=== PATIENT | female | born 2005 | race Caucasian/White ===

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

== ENCOUNTER 2025-02-02 22:21 | Emergency (ER) | payer SELFPAY ==
--- OUTSIDE RECORDS SUMMARY | 2021-07-06 07:51 | XMS_ITS | Continuity of Care Document ---
Author Organization [facility] Address [address] [address] Phone Care Team Providers Care Production Consultant Name Role Phone Asim Kennedy Joseph Unavailable [...] Diagnoses Date Provider Providers Copied on Encounter [facility], [address] [place] [address], [id number], tel:[phone] [facility] No Information Asim Kennedy. [address] [place] [address], [address], [address] [place] [address], . tel:[phone] [facility], [address] [place] [address], [id number], tel:[phone] [facility] Abnormal auditory perception, bilateral 2 Tammy Villanueva. [address] [facility], [address], [place], [place], [id number], [place]. tel:[phone] Referring Provider: Gaby SANTOS, [address] [place] [address] [facility] , [place], [address] . tel:[phone] Family History Family Member Type Diagnosis Age At Onset No Information Payers Payer name Insurance type Covered green party ID Authoriza tion(s) [facility] [id number] Social History Type Description Quantity Date Captured [...]
[2025-02-02 22:26] VITALS: BP 132/80; PULSE 73; RESP 18; TEMP 36.8; O2SAT 100; BMI 36.8
[2025-02-02 23:52] VITALS: BP 143/87; PULSE 78; O2SAT 100
[2025-02-03] VITALS (7 sets, daily range): BP systolic 120–131; BP diastolic 62–82; PULSE 54–86; RESP 14; O2SAT 96–99
[2025-02-03 01:05] LABS: HCG Qualitative Urine. Negative (Negative)
[2025-02-03 01:17] LABS: Hematocrit 38.2 % (36-47); Hemoglobin 12.90 g/dL (12.4-14.8); Mean Corpuscular HGB Conc 33.8 g/dL (30-55); Mean Corpuscular Hemoglobin 29.4 pg (27-33); Mean Corpuscular Volume 87.0 fl (85-98); Nucleated Red Blood Cells % 0 %; Platelet Count 342 10^3/cmm (157-399); Red Blood Count 4.39 10^6/uL (3.85-5.65); White Blood Count 8.91 10^3/uL (4.5-13.0)
[2025-02-03 01:45] LABS: Glucose Urine UA Negative (Normal); Nitrate Urine Negative (Negative); Specific Gravity, Urine 1.012 (1.005-1.030)
[2025-02-03 02:09] LABS: Alanine Aminotransferase 9 U/L (0-33); Albumin Level 4.5 g/dL (3.5-5.2); Alkaline Phosphatase 62 U/L (35-105); Anion Gap 17.2 (5-19); Aspartate Amino Transferase 12 U/L (0-32); Blood Urea Nitrogen 12 mg/dL (6-20); Calcium 9.8 mg/dL (8.5-10.5); Carbon Dioxide 25 mmol/L (22-29); Chloride 101 mmol/L (98-107); Creatinine Clr Calc Pharmacy 167.8406; Globulin 3.2 g/dL (1.3-4.6); Glucose 90 mg/dL (65-115); Osmolality Calculated 287 mOsm/kg (285-295); Potassium 4.2 mmol/L (3.5-5.1); Sodium 139 mmol/L (136-145); Total Protein 7.7 g/dL (6.6-8.7)
[2025-02-03 03:17] LABS: Neisseria Gonorrhea NOT DETECTED (Negative)
--- NOTE | 2025-02-03 04:53 | ED_ITS ---
HPI - Abdominal Pain 2 General: Chief Complaint: Abdominal Pain Stated Complaint: stomach pain. weird discharge Time Seen by Provider: 02/03/25 00:37 History of Present Illness: 19 yo F presents for evaluation of vagin al discharge and abdominal pain. Pain for approximately 4-6 days, mostly lower abdomen, intermittent but persistent, stabbing, 2/10, tender to touch; occasionally radiates up the sides or feels like ?kidney? area. Had sex this morning followed by dark brown bleeding. Reports nausea without vomiting, dizziness, and heightened smell sensitivity with food aversions. Menstrual Hx notable for historically irregular cycles; last 6 months reportedly regular. Last menses started 12/28 and ended 01/02 per pt; currently 6 days late (date referenced as ). Took two [facility] home tests, both clearly negative. Denies prior GI or issues. Pt is accompanied by aunt/adoptive mother and consents to discuss freely. exam deferred. Related Data Previous Rx's ?Medication ?Instructions ?Recorded ibuprofen 800 mg tablet 800 mg PO Q8H PRN pain #30 t abs 06/16/24 oseltamivir 75 mg capsule (Tamiflu) 75 mg PO BID 5 day s #10 caps 06/16/24 promethazine-DM 6.25 mg-15 mg/5 mL 10 ml PO Q6H PRN co ugh #473 mL 06/16/24 oral syrup azithromycin 250 mg tablet See Rx Instructions PO .COM PLEX #6 11/21/24 tabs Allergies Allergy/AdvReac Type Severity Reaction Status Date / Time No Known Allergies Allergy Verified 02/02/25 22:31 [facility] ED 2 PFSH: Social History Smoking and tobacco/nicotine status: former use of tobacco/nicotine Physical Exam 2 Const: COMMON NORMALS: no acute distress, patient oriented x3 and alert HENMT: COMMON NORMALS: normocephalic and atraumatic HEAD & SCALP: n ormocephalic and atraumatic Eye: COMMON NORMALS: Equal, round and reactive pupils present, EOMs intact bilaterally and no scleral icterus PUPIL: Yes Equal, round and reactive pupils present Resp: COMMON NORMALS: normal respiratory effort and No retractions Cardio: COMMON NORMALS: regular rate, regular rhythm and No murmurs present (Cardio) RATE: regular rate RHYTHM: regular rhythm GI: OTHER: Mild suprapubic and left adnexal tenderness to palpation; other abdominal areas with only slight pressure sensitivity as elicited. exam deferred. Neuro: COMMON NORMALS: patient oriented x3 SENSORIUM/ORIENTATION: Yes alert Skin: COMMON NORMALS: no rashes or lesions noted GENERAL SKIN EXAM: no rashes or lesions noted Course 2 Vital Signs: Vital signs: Vital Signs Temperature 98.3 F 02/02/25 22:26 Pulse Rate 86 02/03/25 04:50 Respiratory Rate 14 02/03/25 04:50 Blood Pressure 120/62 02/03/25 04:50 Pulse Oximetry 99 02/03/25 04:50 Oxygen Delivery Me thod Room Air 02/03/25 03:00 MDM - Abdominal Pain Medical Decision Making 19F with 4-6 days intermittent lower abdominal pain, nausea, dizziness, 6 days late menses, dark brown bleeding after intercourse this morning, and concern for despite two negative home tests. Seen today for vaginal discharge. considered given missed menses. STI etiologies (chlamydia, gonorrhea) discussed as possible causes of indolent pelvic pain and discharge. Provider does not think ultrasound is needed at this time based on current exam. Blood work planned including serum test; urine testing planned for and, if possible, NAAT for chlamydia/gonorrhea from existing urine. If urine NAAT not available, patient agreeable to self-swab. Imaging (CT/US) to be considered pending lab results. Lab work unremarkable. No evidence of STI, UTI, , or other abnormality. Exam reassuring. Will be discharged home in stable condition with follow-up to primary care Lab Data 02/03/25 01:09 02/03/25 01:09 Labs/Radiology: Laboratory Results WBC 8.91 10^3/uL (4.5-13.0) 02/03/25 01:09 RBC 4.39 10^6/uL (3.85-5.65) 02/03/25 01:09 Hgb 12.90 g/dL (12.4-14.8) 02/03/25 01:09 Hct 38.2 % (36-47) 02/03/25 01:09 MCV 87.0 fl (85-98) 02/03/25 01:09 MCH 29.4 pg (27-33) 02/03/25 01:09 MCHC 33.8 g/dL (30-55) 02/03/25 01:09 RDW 11.8 % (12.1-15.1) L 02/03/25 01:09 Plt Count 342 10^3/cmm (157-399) 02/03/25 01:09 MPV 8.9 fL (7.4-10.4) 02/03/25 01:09 Neut % (Auto) 62.5 % 02/03/25 01:09 Lymph % (Auto) 29.5 % 02/03/25 01:09 [place] % (Auto) 5.1 % 02/03/25 01:09 Eos % (Auto) 2.0 % 02/03/25 01:09 Baso % (Auto) 0.8 % 02/03/25 01:09 Neut # (Auto) 5.57 10^3/uL (1.8-8.0) 02/03/25 01:09 Lymph # (Auto) 2.6 10^3/uL (1.5-6.5) 02/03/25 01:09 [place] # (Auto) 0.5 10^3/uL (0.2-0.9) 02/03/25 01:09 Eos # (Auto) 0.2 10^3/uL (0.0-0.8) 02/03/25 01:09 Baso # (Auto) 0.1 10^3/uL (0.0-0.1) 02/03/25 01:09 Nucleated RBC % (auto) 0 % 02/03/25 01:09 Nucleated RBCs # 0.0 /100WBC 02/03/25 01:09 Sodium 139 mmol/L (136-145) 02/03/25 01:09 Potassium 4.2 mmol/L (3.5-5.1) 02/03/25 01:09 Chloride 101 mmol/L (98-107) 02/03/25 01:09 Carbon Dioxide 25 mmol/L (22-29) 02/03/25 01:09 Anion Gap 17.2 (5-19) 02/03/25 01:09 BUN 12 mg/dL (6-20) 02/03/25 01:09 Creatinine 0.7 mg/dL (0.5-0.9) 02/03/25 01:09 GFR Calculation 107.8 mL/min (90-130) 02/03/25 01:09 Glucose 90 mg/dL (65-115) 02/03/25 01:09 Calculated Osmolality 287 mOsm/kg (285-295) 02/03/25 01:09 Calcium 9.8 mg/dL (8.5-10.5) 02/03/25 01:09 Total Bilirubin 0.2 mg/dL (0.15-1.2) 02/03/25 01:09 AST 12 U/L (0-32) 02/03/25 01:09 ALT 9 U/L (0-33) 02/03/25 01:09 Alkaline Phosphatase 62 U/L (35-105) 02/03/25 01:09 Total Protein 7.7 g/dL (6.6-8.7) 02/03/25 01:09 Albumin 4.5 g/dL (3.5-5.2) 02/03/25 01:09 Globulin 3.2 g/dL (1.3-4.6) 02/03/25 01:09 HCG, Qual Negative (Negative) 02/02/25 22:42 Ser , Semi-Qnt < 1.00 mIU/mL 02/03/25 01:09 Urine Color Yellow (Yellow) 02/03/25 01:26 Urine Appearance Clear (CLEAR) 02/03/25 01:26 Urine pH 6.0 (5-7) 02/03/25 01:26 Ur Specific [place] 1.012 (1.005-1.030) 02/03/25 01:26 Urine Protein Negative (Negative) 02/03/25 01:26 Urine Glucose (UA) Negative (Normal) 02/03/25 01:26 Urine Ketones Negative (Negative) 02/03/25 01:26 Urine Blood 2+ (Negative) A 02/03/25 01:26 Urine Nitrate Negative (Negative) 02/03/25 01:26 Urine Bilirubin Negative (Negative) 02/03/25 01:26 Urine Urobilinogen 0.2 mg/dL (Negative) 02/03/25 01:26 Ur Leukocyte Esterase Negative (Negative) 02/03/25 01:26 Urine RBC 3-5 /hpf (0-2) 02/03/25 01:26 Urine WBC 0-5 /hpf (0-5) 02/03/25 01:26 Ur Squamous Epith Cells 0-5 /hpf (0-5) 02/03/25 01:26 Amorphous Sediment Not Reportable 02/03/25 01:26 Urine Bacteria None seen /hpf (NONE) 02/03/25 01:26 Hyaline Casts 0-4 /lpf H 02/03/25 01:26 C. trachomatis (PCR) Not detected (Negative) 02/03/25 01:26 N. gonorrhoeae (PCR) Not detected (Negative) 02/03/25 01:26 No radiology studies performed this visit Discharge Plan Discharge Patient Disposition: Home Condition: Stable Prescriptions: No Action oseltamivir [Tamiflu] 75 mg capsule 75 mg PO BID 5 Days Qty: 10 0RF promethazine-DM 6.25-15 mg/5 mL syrup 10 ml PO Q6H PRN (Reason: cough) Qty: 473 0RF ibuprofen 800 mg tablet 800 mg PO Q8H PRN (Reason: pain) Qty: 30 0RF azithromycin 250 mg tablet See Rx Instructions PO .COMPLEX Qty: 6 0RF Rx Instructions: take 500 mg today (day 1), then 250 mg for 4 days (days 2-5) PO Discharge Orders: Discharge ED (Routine); Ordered 02/03/25 Ordered By: Manjeet Yan Discharge Diet: Advance as tolerated Discharge Activity: Resume usual activity Patient Instructions: Abdominal Pain (ED), Patient Portal & Dot Instructions Activity Restrictions/Additional Instructions: all of your tests were reassuring. There is no evidence of UTI, chlamydia, gonorrhea, or other abnormality. You are not . Symptoms should get better with time without need for any specific intervention. Please take Tylenol or ibuprofen for pain as needed Print Language: Surinamese Coding Level of Care Code ED Project Product Manager for En Howe
== END 2025-02-03 04:53 | disposition home or self-care (01) ==
PROVIDERS: Emergency Provider Student in an Organized Health Care Education/Training Program
DX: R10.30 Lower abdominal pain, unspecified (principal); R11.0 Nausea; R42 Dizziness and giddiness; N93.9 Abnormal uterine and vaginal bleeding, unspecified; Z87.891 Personal history of nicotine dependence
CPT/HCPCS: 36415; 80053; 81001; 81025; 84702; 85025; 87491; 87591; 99283

== ENCOUNTER 2025-04-30 03:29 | Emergency (ER) | payer SELFPAY ==
--- OUTSIDE RECORDS SUMMARY | 2021-07-06 06:51 | XMS_ITS | Continuity of Care Document ---
Author Organization [facility] Address [address] [address] Phone Care Team Providers Care Deli Cutter Slicer Name Role Phone Asim Kennedy Joseph Unavailable Unavailable Medications Medication Instructions Dosage Effective Dates (start - stop) Status Comments fluoxetine 20 mg capsule take 1 capsule by oral route every day in the morning 20 MG - Active levothyroxine 100 mcg tablet take 1 tablet by oral route every day 100 MCG - Active METFORMIN HCL (unknown strength) take 10 milliliter by oral route 2 times every day with meals Not Available - Active Procedures Procedure Date Comp Audiometry Threshold Eval Advance Directives Directive Yes / No Effective Date File Name No Information Encounters Encounter Description Practice Location Reason(s) For Visit Diagnoses Date Provider Providers Copied on Encounter [facility], [address] [place] [address], [id number], tel:[phone] [facility] No Information Asim Kennedy. [address] [place] [address], [address], [address] [place] [address], . tel:[phone] [facility], [address] [place] [address], [id number], tel:[phone] [facility] Abnormal auditory perception, bilateral 2 Tammy Villanueva. [address] [facility], [address], [place], [place], [id number], [place]. tel:[phone] Referring Provider: Gaby SANTOS, [address] [place] [address] [facility] , [place], [address] . tel:[phone] Family History Family Member Type Diagnosis Age At Onset No Information Payers Payer name Insurance type Covered green party ID Authoriza tion(s) [facility] [id number] Social History Type Description Quantity Date Captured Comments Sex Female Smoking Status No Information Chief Complaint And Reason For Visit No Information Reason For Referral Reason For Referral No Information History Of Present Illness Encounter Date Complaint History Of Prese nt Illness No Information Functional Status Date Functional Assessmen t No Information Instructions Date Instruction Additional Infor mation No Information Assessments Type Assessment Date No Information Patient Care Teams Name Effective Dates (start - stop) Status Members No Information
[2025-04-30 03:36] VITALS: BP 123/84; PULSE 92; RESP 18; TEMP 36.4; O2SAT 97; BMI 38.1
[2025-04-30 03:59] LABS: Hematocrit 40.4 % (36-47); Hemoglobin 13.40 g/dL (12.4-14.8); Mean Corpuscular HGB Conc 33.2 g/dL (30-55); Mean Corpuscular Hemoglobin 28.6 pg (27-33); Mean Corpuscular Volume 86.1 fl (85-98); Nucleated Red Blood Cells % 0 %; Platelet Count 348 10^3/cmm (157-399); Red Blood Count 4.69 10^6/uL (3.85-5.65); White Blood Count 12.64 10^3/uL (4.5-13.0)
[2025-04-30] MEDS: ondansetron 2 mg/ML SDV 2 mL 4 MG IVP (04:00)
[2025-04-30 04:07] LABS: HCG, Serum Qual Negative (Negative)
[2025-04-30 04:13] LABS: Alanine Aminotransferase 17 U/L (0-33); Albumin Level 4.3 g/dL (3.5-5.2); Alkaline Phosphatase 57 U/L (35-105); Anion Gap 14.3 (5-19); Aspartate Amino Transferase 19 U/L (0-32); Blood Urea Nitrogen 13 mg/dL (6-20); Calcium 8.9 mg/dL (8.5-10.5); Carbon Dioxide 25 mmol/L (22-29); Chloride 100 mmol/L (98-107); Creatinine Clr Calc Pharmacy 149.7767; Globulin 3.3 g/dL (1.3-4.6); Glucose 95 mg/dL (65-115); Lipase 25 U/L (13-60); Osmolality Calculated 282 mOsm/kg (285-295); Potassium 3.3 mmol/L (3.5-5.1); Sodium 136 mmol/L (136-145); Total Protein 7.6 g/dL (6.6-8.7)
--- NOTE | 2025-04-30 04:16 | CTR_ITS ---
PROCEDURE INFORMATION: Exam: CT Abdomen And Pelvis With Contrast Exam date and time: 04/30/2025 4:38 AM Age: 19 years old Clinical indication: Abdominal pain; Additional info: Diffuse upper abd pain TECHNIQUE: Imaging protocol: Computed tomography of the abdomen and pelvis with contrast. Radiation optimization: All CT scans at this facility use at least one of these dose optimization techniques: automated exposure control; mA and/or kV adjustment per patient size (includes targeted exams where dose is matched to clinical indication); or iterative reconstruction. Contrast material: OMNI 350; Contrast volume: 100 ml; Contrast route: INTRAVENOUS (IV); COMPARISON: No relevant prior studies available. RADIATION DOSE METRICS: Total DLP (mGy-cm): 1225.1 FINDINGS: Liver: Normal. No mass. Gallbladder and biliary ducts: Normal. No calcified stones. No ductal dilation. Pancreas: Normal. No ductal dilation. Spleen: Normal. No splenomegaly. Adrenal glands: Normal. No mass. Kidneys and ureters: Normal. No hydronephrosis. Stomach and bowel: Unremarkable. No obstruction. No mucosal thickening. Appendix: No evidence of appendicitis. Normal. Intraperitoneal space: Unremarkable. No free air. No significant fluid collection. Small volume pelvic cul-de-sac intraperitoneal free fluid with simple appearance. Vasculature: Unremarkable. No abdominal aortic aneurysm. Lymph nodes: Unremarkable. No enlarged lymph nodes. Urinary bladder: Unremarkable as visualized. Reproductive: Unremarkable uterus. Unremarkable left ovary. Early involutional changes of a small right ovary cyst measures 3.5 cm. Bones/joints: Unremarkable. No acute fracture. Soft tissues: Unremarkable. CT/CT abdomen pelvis w con* [id number] IMPRESSION: No acute findings.
[2025-04-30 04:30] VITALS: BP 132/78; PULSE 81; O2SAT 100
--- NOTE | 2025-04-30 04:32 | W.ED.NAVMDI ---
HPI - Nausea/Vomiting/Diarrhea General: Chief complaint: Nausea/Vomiting/Diarrhea Stated complaint: Passed Out\D\V Time Seen by Provider: 04/30/25 03:38 History of Present Illness: Patient is a 19-year-old female with past medical history of hypothyroidism who presents to the ED with abdominal pain. Describes that as diffusely upper abdominal in nature, stabbing, has been there intermittently for the past month but worsened acutely over the past day, no obvious provoking factors, not seemingly just related to food. She has felt nauseous and had 1 episode of vomiting, no diarrhea, no previous GI history, no previous abdominal surgeries. Has not realized any fevers, chills, diaphoresis. Last period was about a month and a half ago, not on contraception. Does not have a heavy history of ibuprofen usage, rarely drinks alcohol, vapes nicotine most days. Related Data Previous Rx's ?Medication ?Instructions ?Recorded ibuprofen 800 mg tablet 800 mg PO Q8H PRN pain #30 tabs 06/16/24 oseltamivir 75 mg capsule (Tamiflu) 75 mg PO BID 5 days #10 caps 06/16/24 promethazine-DM 6.25 mg-15 mg/5 mL 10 ml PO Q6H PRN cough #473 mL 06/16/24 oral syrup azithromycin 250 mg tablet See Rx Instructions PO .COMPLEX #6 11/21/24 tabs ondansetron 4 mg disintegrating 4 mg PO Q8H 5 days #15 tabs 04/30/25 tablet sucralfate 1 gram tablet (Carafate) 1 g PO BID 4 weeks #56 tabs 04/30/25 Allergies Allergy/AdvReac Type Severity Reaction Status Date / Time No Known Allergies Allergy Verified 02/02/25 22:31 Review of Systems General: Reports: 10 or more systems reviewed and unremarkable except in HPI and below PFSH ED PFSH: Social History Smoking and tobacco/nicotine status: former use of tobacco/nicotine Female Reproductive History: Date of last menstrual period: 03/03/25 Physical Exam Narrative: EXAM NARRATIVE: Patient overall well-appearing, afebrile and vital signs stable on arrival, no acute distress. head normocephalic, PERRL, moist mucous membranes, no cervical LAD. breathing comfortably on RA, saturating well, clear BL and no adventitious breath sounds, able to speak in full sentences without getting SOB, no signs of respiratory distress. NSR with no murmurs, no leg swelling, 2+ pulses throughout, good cap refill. Abdomen soft, mild diffusely tender in upper abdominal region, negative Dorsey sign 4 extremities without apparent deformity or injury. GCS 15, AAOx4, able to answer questions and follow commands appropriately, moving all 4 extremities symmetrically and spontaneoulsy. Normal mood and affect. Course Vital Signs: Vital signs: Vital Signs Temperature 97.6 F 04/30/25 03:36 Pulse Rate 88 04/30/25 05:57 Respiratory Rate 18 04/30/25 03:36 Blood Pressure 128/86 04/30/25 05:57 Pulse Oximetry 95 04/30/25 05:57 Oxygen Delivery Me thod Room Air 04/30/25 03:36 MDM - Nausea/Vomiting/Diarrhea Medical Decision Making -ddx: Gastritis, GERD, cholelithiasis, pancreatitis, constipation, dehydration, electrolyte abnormality, cystitis, pyelonephritis, PUD - Patient with acute on chronic upper abdominal pain, never been evaluated prior, no obvious provoking factors, will evaluate with abdominal labs, CT scan after test, give symptomatic support with fluids, Zofran, Pepcid Toradol and reassess. - Patient with reassuring ED evaluation, had mild hypokalemia CT scan with no obvious intra-abdominal pathology, did have a slightly involuted ovarian cyst on the right, not seemingly correlating with patient's symptoms today. She was able to p.o. challenge after above medications and had felt improved, believed patient to either have gastritis/early PUD with her clinical signs and symptoms, advised supportive care, dietary recommendations for potential ulcer and prescribe Zofran, Carafate and GI follow-up if patients symptoms persist, discharged in stable condition with boyfriend at bedside. Lab Data 04/30/25 03:47 04/30/25 03:47 Radiology Impressions Abdomen/Pelvis CT 04/30/25 04:16 IMPRESSION: No acute findings. Laboratory Results WBC 12.64 10^3/uL (4.5-13.0) 04/30/25 03:47 RBC 4.69 10^6/uL (3.85-5.65) 04/30/25 03:47 Hgb 13.40 g/dL (12.4-14.8) 04/30/25 03:47 Hct 40.4 % (36-47) 04/30/25 03:47 MCV 86.1 fl (85-98) 04/30/25 03:47 MCH 28.6 pg (27-33) 04/30/25 03:47 MCHC 33.2 g/dL (30-55) 04/30/25 03:47 RDW 12.0 % (12.1-15.1) L 04/30/25 03:47 Plt Count 348 10^3/cmm (157-399) 04/30/25 03:47 MPV 9.0 fL (7.4-10.4) 04/30/25 03:47 Neut % (Auto) 77.1 % 04/30/25 03:47 Lymph % (Auto) 18.4 % 04/30/25 03:47 [place] % (Auto) 3.2 % 04/30/25 03:47 Eos % (Auto) 0.8 % 04/30/25 03:47 Baso % (Auto) 0.3 % 04/30/25 03:47 Neut # (Auto) 9.73 10^3/uL (1.8-8.0) H 04/30/25 03:47 Lymph # (Auto) 2.3 10^3/uL (1.5-6.5) 04/30/25 03:47 [place] # (Auto) 0.4 10^3/uL (0.2-0.9) 04/30/25 03:47 Eos # (Auto) 0.1 10^3/uL (0.0-0.8) 04/30/25 03:47 Baso # (Auto) 0.0 10^3/uL (0.0-0.1) 04/30/25 03:47 Nucleated RBC % (auto) 0 % 04/30/25 03:47 Nucleated RBCs # 0.0 /100WBC 04/30/25 03:47 Sodium 136 mmol/L (136-145) 04/30/25 03:47 Potassium 3.3 mmol/L (3.5-5.1) L 04/30/25 03:47 Chloride 100 mmol/L (98-107) 04/30/25 03:47 Carbon Dioxide 25 mmol/L (22-29) 04/30/25 03:47 Anion Gap 14.3 (5-19) 04/30/25 03:47 BUN 13 mg/dL (6-20) 04/30/25 03:47 Creatinine 0.8 mg/dL (0.5-0.9) 04/30/25 03:47 GFR Calculation 92.4 mL/min (90-130) 04/30/25 03:47 Glucose 95 mg/dL (65-115) 04/30/25 03:47 Calculated Osmolality 282 mOsm/kg (285-295) L 04/30/25 03:47 Calcium 8.9 mg/dL (8.5-10.5) 04/30/25 03:47 Total Bilirubin 0.5 mg/dL (0.15-1.2) 04/30/25 03:47 AST 19 U/L (0-32) 04/30/25 03:47 ALT 17 U/L (0-33) 04/30/25 03:47 Alkaline Phosphatase 57 U/L (35-105) 04/30/25 03:47 C-Reactive Protein 3.0 mg/L (0.0-4.9) 04/30/25 03:47 Total Protein 7.6 g/dL (6.6-8.7) 04/30/25 03:47 Albumin 4.3 g/dL (3.5-5.2) 04/30/25 03:47 Globulin 3.3 g/dL (1.3-4.6) 04/30/25 03:47 Lipase 25 U/L (13-60) 04/30/25 03:47 HCG, Qual Negative (Negative) 04/30/25 03:47 Urine Color Yellow (Yellow) 04/30/25 05:18 Urine Appearance Clear (CLEAR) 04/30/25 05:18 Urine pH 6.0 (5-7) 04/30/25 05:18 Ur Specific [place] 1.072 (1.005-1.030) H 04/30/25 05:18 Urine Protein Negative (Negative) 04/30/25 05:18 Urine Glucose (UA) Negative (Normal) 04/30/25 05:18 Urine Ketones Negative (Negative) 04/30/25 05:18 Urine Blood Negative (Negative) 04/30/25 05:18 Urine Nitrate Negative (Negative) 04/30/25 05:18 Urine Bilirubin Negative (Negative) 04/30/25 05:18 Urine Urobilinogen 0.2 mg/dL (Negative) 04/30/25 05:18 Ur Leukocyte Esterase Negative (Negative) 04/30/25 05:18 Urine RBC 3-5 /hpf (0-2) 04/30/25 05:18 Urine WBC 0-5 /hpf (0-5) 04/30/25 05:18 Ur Squamous Epith Cells 0-5 /hpf (0-5) 04/30/25 05:18 Amorphous Sediment Not Reportable 04/30/25 05:18 Urine Bacteria Trace /hpf (NONE) 04/30/25 05:18 Hyaline Casts 0.40 /lpf 04/30/25 05:18 All radiology interpretation(s) finalized by discharge Discharge Plan Discharge Patient Disposition: Home Clinical Impression: PUD (peptic ulcer disease) Condition: Stable Prescriptions: New ondansetron 4 mg tablet,disintegrating 4 mg PO Q8H 5 Days Qty: 15 0RF sucralfate [Carafate] 1 gram tablet 1 g PO BID 28 Days Qty: 56 0RF No Action oseltamivir [Tamiflu] 75 mg capsule 75 mg PO BID 5 Days Qty: 10 0RF promethazine-DM 6.25-15 mg/5 mL syrup 10 ml PO Q6H PRN (Reason: cough) Qty: 473 0RF ibuprofen 800 mg tablet 800 mg PO Q8H PRN (Reason: pain) Qty: 30 0RF azithromycin 250 mg tablet See Rx Instructions PO .COMPLEX Qty: 6 0RF Rx Instructions: take 500 mg today (day 1), then 250 mg for 4 days (days 2-5) PO Discharge Orders: Discharge ED (Routine); Ordered 04/30/25 Ordered By: Justice Wheeler Referrals: [facility] [Outside] - 7-10 days Patient Instructions: Opioid Safety, Pain Management, Patient Portal & Dot Instructions Activity Restrictions/Additional Instructions: You were seen for your abdominal pain and vomiting, you were evaluated with labs and a CT scan which were ultimately reassuring, you might have the beginnings of a stomach ulcer. For this, avoid spicy and hot meals, ensure you stay hydrated, use the Zofran, 4 mg every 8 hours as needed for nausea. For your stomach pain, try using the medicine Carafate, 1 g twice a day as needed that acts as a Band-Aid of the stomach to help with the pain. If your pain worsens over the next few days to weeks, make an appointment with the GI clinic listed above for further eval. return to the ED with severe worsening of her pain, continuous vomiting, inability to eat or drink, any other emergent concerns. Print Language: Citizen [place] Coding Level of Care Code ED Film Or Tape Librarian for En Howe
[2025-04-30] MEDS: iohexol 350 mg/mL 500 mL Btl (per mL) IV (04:52)
[2025-04-30 05:26] LABS: Glucose Urine UA Negative (Normal); Nitrate Urine Negative (Negative)
[2025-04-30 05:31] LABS: Add Urine Microscopic? YES
[2025-04-30 05:36] LABS: Specific Gravity, Urine 1.072 (1.005-1.030)
[2025-04-30 05:57] VITALS: BP 128/86; PULSE 88; O2SAT 95
== END 2025-04-30 05:55 | disposition home or self-care (01) ==
PROVIDERS: Emergency Provider Student in an Organized Health Care Education/Training Program
DX: K27.9 Peptic ulcer, site unspecified, unspecified as acute or chronic, without hemorrhage or perforation (principal); Z87.891 Personal history of nicotine dependence
CPT/HCPCS: 74177; 80053; 81001; 83690; 84703; 85025; 86140; 96361; 96374; 96375; 99285; J1885; J2405; J3490; J7030